=== PATIENT | male | born 1995 | race Caucasian/White ===

== ENCOUNTER 2018-03-30 10:54 | Emergency (ER) | payer SELFPAY ==
[~2018-03-30] VITALS: Ht 165.1 cm; Wt 68.5 kg
[2018-03-30 10:59] VITALS: BP 134/80
--- NOTE | 2018-03-30 11:03 | NUR ---
PT AMBULATES TO BED 5
--- NOTE | 2018-03-30 11:08 | NUR ---
PATIENT PRESENTS TO ED FOR KENDRICK REMOVAL, DENIES PAIN, VSS; PATIENT POSITIONED FOR COMFORT; HOB ELEVATED; BEDRAILS UP X2; BED DOWN. ER MD MADE AWARE OF PT STATUS.
--- NOTE | 2018-03-30 11:22 | NUR ---
Patient being evaluated by physician at bedside.
[2018-03-30 11:30] VITALS: BP 134/80
--- NOTE | 2018-03-30 11:30 | NUR ---
Patient discharged with v/s stable. Written and verbal after care instructions given and explained. Patient verbalized understanding. Ambulatory with steady gait. All questions addressed prior to discharge. Advised to follow up with PMD.
== END 2018-03-30 11:30 | disposition home or self-care (01) ==
LOC: MED 10:54
DX: S01.91XD Laceration without foreign body of unspecified part of head, subsequent encounter (principal); X58.XXXD Exposure to other specified factors, subsequent encounter
CPT/HCPCS: 99281